=== PATIENT | male | born 1940 | race African-American/Black ===

== ENCOUNTER 2018-03-24 21:47 | Emergency (ER) | payer OTHER ==
[2018-03-24] MEDS ORDERED: Labetalol IV* 5 MG/ML 20 ML VIAL IV PUSH ONE (22:11)
--- OUTSIDE RECORDS SUMMARY | 2018-03-24 22:23 | XMS REPORT ---
:1940 External Reference #:[id number] Author Organization [facility] Address [address] [place] [address] Phone [phone] Care Team Providers Name Role Phone Edgard Stephens M.D. Primary Care Physician Unavailable Payers Type Date Identification Numbers Payment Provider Subscriber Commercial Effective: Policy Number: [employer] Joseph Chavis JR 2016 [id number] Group Number: [id number] [address] Group Name: [employer] [place] [address] PayID: [id number] Problems Date Description Provider Status Onset: 02/15/2017 Mild intermittent asthma Yasir Ledezma M.D. Active Onset: 02/15/2017 Allergic rhinitis Yasir Ledezma M.D. Active Onset: 02/15/2017 Body mass index 25-29 - overweight Yasir Ledezma M.D. 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 Home Environment Mattress is 1 year old Home Environment Pillows are rubber (foam) Home Environment Pillows are not encased in an allergy proof case Home Environment Mattress is encased in an allergy proof case Home Environment Uses a dehumidifier Home Environment There are no draperies in the home Home Environment The home is not yudy Home Environment The floors are wood Home Environment Uses hot water heating Home Environment [place] Home Environment Water Source: Well Smoke-Free Home is smoke-free Smoke-Free Work is smoke-free Pets 1 cat Occupation [employer] ETOH Use Occasionally consumes alcohol Smoking Patient is a former smoker Recreational Drug Use Denies Drug Use Allergies, Adverse Reactions, Alerts Date Description Reaction Status Severity Comments 02/15/2017 NKDA active Medications Medication Date Status Form Strength Qnty SIG Indications Ordering Provider Lisinopril Active Tablets 5mg Unknown Klonopin Active Tablets 0.5mg Unknown Medications Administered in Office Medication Date Status Form Strength Qnty SIG Indications Ordering Provider Injection 03/21/20 Administered Injection Allergy 18 Injection Injection 03/14/20 Administered Injection Allergy 18 Injection Injection 03/06/20 Administered Injection Yasir Ledezma M.D. Injection 03/06/20 Administered Injection Allergy 18 Injection Injection 02/14/20 Administered Injection Allergy 18 Injection Injection 02/01/20 Administered Injection Allergy 18 Injection Injection 01/18/20 Administered Injection Allergy 18 Injection Injection 01/11/20 Administered Injection Allergy 18 Injection Injection 01/04/20 Administered Injection Allergy 18 Injection Injection 12/28/19 Administered Injection Allergy 18 Injection Injection 12/21/19 Administered Injection Allergy 18 Injection Injection 12/14/19 Administered Injection Allergy 18 Injection Injection 12/07/19 Administered Injection Allergy 18 Injection Injection 11/28/19 Administered Injection Allergy 18 Injection Injection 11/15/19 Administered Injection Allergy 18 Injection Injection 11/08/19 Administered Injection Allergy 18 Injection Injection 10/29/19 Administered Injection Allergy 18 Injection Injection 09/27/20 Administered Injection Allergy 17 Injection Injection 09/12/20 Administered Injection Allergy 17 Injection Injection 09/03/20 Administered Injection Allergy 17 Injection Injection 08/27/20 Administered Injection Allergy 17 Injection Injection 08/20/20 Administered Injection Allergy 17 Injection Injection 08/13/20 Administered Injection Allergy 17 Injection Injection 08/01/20 Administered Injection Allergy 17 Injection Injection 07/26/20 Administered Injection Allergy 17 Injection Injection 07/20/20 Administered Injection Allergy 17 Injection Injection 07/13/20 Administered Injection Allergy 17 Injection Injection 07/02/20 Administered Injection Allergy 17 Injection Injection 06/25/20 Administered Injection Allergy 17 Injection Injection 06/06/20 Administered Injection Allergy 17 Injection Injection 05/28/20 Administered Injection Allergy 17 Injection Injection 05/23/20 Administered Injection Allergy 17 Injection Injection 05/14/20 Administered Injection Allergy 17 Injection Injection 05/09/20 Administered Injection Allergy 17 Injection Injection 04/30/20 Administered Injection Allergy 17 Injection Injection 04/16/20 Administered Injection Allergy 17 Injection Injection 04/11/20 Administered Injection Allergy 17 Injection Injection 04/04/20 Administered Injection Allergy 17 Injection Injection 03/26/20 Administered Injection Allergy 17 Injection Vital Signs Date Vital Result Comment 03/22/2018 Height 67 inches 5'7" Weight 180.00 lb Weight in kg's 81.648 Respiratory Rate 20 /min Heart Rate 71 /min O2 % BldC Oximetry 98 % BP Systolic 142 mmHg BP Diastolic 78 mmHg BMI (Body Mass Index) 28.2 kg/m2 02/22/2017 Height 67 inches 5'7" Weight 181.00 lb Weight in kg's 82.102 Respiratory Rate 20 /min Heart Rate 75 /min O2 % BldC Oximetry 98 % BP Systolic 132 mmHg BP Diastolic 82 mmHg BMI (Body Mass Index) 28.3 kg/m2 02/15/2017 Height 67 inches 5'7" Weight 180.00 lb Weight in kg's 81.648 Respiratory Rate 18 /min Heart Rate 80 /min O2 % BldC Oximetry 98 % BP Systolic 134 mmHg BP Diastolic 84 mmHg BMI (Body Mass Index) 28.2 kg/m2 Results Description No Information Procedures Date CPT Code Description Status 03/21/2018 91020 Injection Completed 03/14/2018 98711 Injection Completed 03/06/2018 40662 Injection Completed 03/06/2018 54686 Injection Completed 02/13/2018 96986 Injection Completed 01/31/2018 31274 Injection Completed 01/17/2018 62604 Injection Completed 01/10/2018 82837 Injection Completed 01/03/2018 69050 Extract 1-10 Completed 01/03/2018 86912 Injection Completed 12/27/2017 30456 Injection Completed 12/20/2017 37173 Injection Completed 12/13/2017 04869 Injection Completed 12/06/2017 05266 Injection Completed 11/28/2017 02263 Injection Completed 11/15/2017 41808 Injection Completed 11/08/2017 15124 Injection Completed 10/29/2017 19748 Injection Completed 09/27/2017 24190 Injection Completed 09/12/2017 97091 Extract 1-10 Completed 09/12/2017 42096 Injection Completed 09/03/2017 62256 Injection Completed 08/27/2017 77081 Injection Completed 08/20/2017 60741 Injection Completed 08/13/2017 95527 Injection Completed 08/01/2017 99984 Injection Completed 07/26/2017 73371 Injection Completed 07/20/2017 65260 Injection Completed 07/13/2017 65584 Injection Completed 07/02/2017 27112 Injection Completed 06/25/2017 23314 Extract 1-10 Completed 06/25/2017 45271 Injection Completed 06/06/2017 43941 Injection Completed 05/28/2017 81103 Injection Completed 05/23/2017 53507 Injection Completed 05/14/2017 46862 Injection Completed 05/09/2017 32990 Injection Completed 04/30/2017 68394 Injection Completed 04/16/2017 58395 Injection Completed 04/11/2017 01085 Injection Completed 04/04/2017 13361 Injection Completed 03/26/2017 02848 Injection Completed 02/28/2017 59609 Extract 1-10 Completed 02/22/2017 13436 Skin Test Scratch # Of Units ____ Completed 02/15/2017 49818 Pre PFT Completed Encounters Type Date Location Provider CPT E/M Dx Office Visit 03/22/2018 10:20a [facility] 07419 J30.1 J30.81 J30.89 J30.2 J45.20 Office Visit 02/22/2017 10:20a [facility] 83440 J45.20 J30.89 J30.81 J30.2 J30.1 Z68.28 Office Visit 02/15/2017 9:00a Lina Ledezma M.D. 03282 J30.89 J45.20 Z68.28 Plan of Care 03/22/2018 - KELI Mukherjee-CJ30.1 Allergic rhinitis due to fwvuuvC37.81 Allergic rhinitis due to animal (cat) (dog) hair and vgjyjcJ57.89 Other allergic xjbomuofD66.2 Other seasonal allergic zbhuahvqO55.20 Mild intermittent asthma, uncomplicatedFollow up:1 yearRecommendations:Continue all medications as prescribed.Refrain from wearing perfumes/scented colognes while visitingour office. Continue the IT as tolerated To keep Springtime pollen and mold spores at bay, we recommend the following: -Keep doors and windows closed. - Change clothes and shower before bed to remove pollen from hair and skin. - Limit outdoor time during peak pollen counts. -Replace your home's air filters monthly. -Do not hang your laundry outside to dry.
[2018-03-24 22:31] LABS: ABS Basophils 0 10^3/ul (0-0.2); ABS Eosinophils 0.2 10^3/ul (0-0.6); ABS Lymphocytes 3.7 10^3/ul (1.0-4.8); ABS Monocytes 0.8 10^3/ul (0-0.8); ABS Nucleated RBC 0 10^3/ul; Eosinophil % 2.5 % (0-6); Hematocrit 44 % (42-52); Hemoglobin 14.7 g/dl (14.0-18.0); Lymphocyte % 37.7 % (25-47); Mean Corpuscular HGB Conc 34 g/dl (31-36); Mean Corpuscular Hemoglobin 28 pg (27-31); Mean Corpuscular Volume 83 fL (80-94); Mean Platelet Volume 9.2 um3 (7.4-10.4); Nucleated Red Blood Cells % 0.1; Platelet Count 144 10^3/ul (150-450); Red Blood Count 5.25 10^6/ul (4.00-5.40); Red Cell Distribution Width 15 % (10.5-15); White Blood Count 9.8 10^3/ul (3.5-10.8)
[2018-03-24 22:47] LABS: EGFR Non-African American 73.7 (>60)
[2018-03-24 23:53] VITALS: BP 146/82
--- NOTE | 2018-03-25 19:34 | ED ---
Malinda Sher Emily, scribed for Param Suresh MD on 03/24/18 at 2215 . Hypertension - HPI Summary HPI Summary: This patient is a 77 year old M presenting to [facility] accompanied by family with a chief complaint of elevated blood pressure that began yesterday. The patient rates the pain 0/10 in severity. Symptoms aggravated by nothing. Symptoms alleviated by blood pressure medication. Patient reports dizziness and nausea. Patient denies headache. Pt reports that his blood pressure was over 200 systolic yesterday, so he took his hypertension medication, lisinopril. 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 Patient reports that he has a history of hypertension. - History of Current Complaint Chief Complaint: EDHypertension Stated Complaint: POSS HIGH BLOOD PRESSURE Time Seen by Provider: 03/24/18 22:04 Hx Obtained From: Patient Onset/Duration: Started Days Ago, Still Present Timing: Constant Reported Blood Pressure Prior To Arrival: 205/110 Aggravating Factor(s): Nothing Alleviating Factor(s): Nothing Associated Signs & Symptoms: Dizziness, Other: - Positive nausea. Negative headache - Allergies/Home Medications Allergies/Adverse Reactions: Allergies Allergy/AdvReac Type Severity Reaction Status Date / Time wheat Allergy Intermediate GI Upset Uncoded 05/01/16 19:06 Home Medications: Home Medications Ascorbic Acid TAB* [Vitamin C TAB*] 500 mg PO DAILY 03/24/18 [History Confirmed 03/24/18] Echinacea Purpurea Root [Echinacea] 80 mg PO DAILY 03/24/18 [History Confirmed 03/24/18] Lisinopril 20 mg PO DAILY 03/24/18 [History Confirmed 03/24/18] PMH/Surg Hx/FS Hx/Imm Hx Previously Healthy: No Endocrine/Hematology History: Denies: Hx Diabetes, Hx Thyroid Disease Cardiovascular History: Reports: Hx Hypertension Denies: Hx Pacemaker/ICD Respiratory History: Denies: Hx Asthma, Hx Chronic Obstructive Pulmonary Disease (COPD) GI History: Denies: Hx Ulcer Sensory History: Denies: Hx Hearing Aid Psychiatric History: Denies: Hx Panic Disorder - Cancer History Cancer Type, Location and Year: prostate 2011 - radiation ended 1 yr ago - Surgical History Surgery Procedure, Year, and Place: tonsils Infectious Disease History: No Infectious Disease History: Denies: Hx Hepatitis, Hx Human Immunodeficiency Virus (HIV), Traveled Outside the [place] in Last 30 Days - Family History Known Family History: Positive: Blood Disorder, Other - FATAL PE'S FOR FATHER AND NEPHEW - Social History Occupation: Employed Full-time Lives: With Family Alcohol Use: Weekly Hx Substance Use: No Substance Use Type: Reports: None Hx Tobacco Use: Yes Smoking Status (MU): Former Smoker Length of Time of Smoking/Using Tobacco: quit at 37 years Have You Smoked in the Last Year: No Review of Systems Positive: Other - Positive elevated BP Positive: Nausea Neurological: Other - Positive dizziness Negative: Headache All Other Systems Reviewed And Are Negative: Yes Physical Exam - Summary Physical Exam Summary: VITAL SIGNS: Reviewed. GENERAL: Patient is a well-developed and nourished male who is lying comfortable in the stretcher. Patient is not in any acute respiratory distress. HEAD AND FACE: No signs of trauma. No ecchymosis, hematomas or skull depressions. No sinus tenderness. EYES: PERRLA, EOMI x 2, No injected conjunctiva, no nystagmus. EARS: Hearing grossly intact. Ear canals and tympanic membranes are within normal limits. MOUTH: Oropharynx within normal limits. NECK: Supple, trachea is midline, no adenopathy, no JVD, no carotid bruit, no c- spine tenderness, neck with full ROM. CHEST: Symmetric, no tenderness at palpation LUNGS: Clear to auscultation bilaterally. No wheezing or crackles. CVS: Regular rate and rhythm, S1 and S2 present, no murmurs or gallops appreciated. ABDOMEN: Soft, non-tender. No signs of distention. No rebound no guarding, and no masses palpated. Bowel sounds are normal. EXTREMITIES: FROM in all major joints, no edema, no cyanosis or clubbing. NEURO: Alert and oriented x 3. No acute neurological deficits. Speech is normal and follows commands. SKIN: Dry and warm Triage Information Reviewed: Yes Vital Signs On Initial Exam: Initial Vitals Temp Pulse Resp BP Pulse Ox 97.4 F 97 16 178/86 98 03/24/18 21:51 03/24/18 21:51 03/24/18 21:51 03/24/18 21:51 03/24/18 21:51 Vital Signs Reviewed: Yes Diagnostics - Vital Signs Vital Signs Temp Pulse Resp BP Pulse Ox 03/24/18 22:01 90 97 03/24/18 21:59 88 185/99 97 03/24/18 21:51 97.4 F 97 16 178/86 98 - Laboratory Result Diagrams: 03/24/18 22:23 03/24/18 22:23 Lab Statement: Any lab studies that have been ordered have been reviewed, and results considered in the medical decision making process. Re-Evaluation - Re-Evaluation First Eval Re-Evaluation Time: 23:11 Change: Improved Comment: The patient reports his symptoms have improved Hypertension Course/Dx - Course Course Of Treatment: This patient is a 77 year old M presenting to [facility] accompanied by family with a chief complaint of elevated blood pressure that began yesterday. In the ED course, the patient received Trandate. Bloodwork and UA obtained. The patient will be discharged with instructions to increase his dose of Lisinopril to 40 mg and with follow up from PCP in one to two days. The patient is agreeable with this plan. - Diagnoses Provider Diagnoses: Hypertension Discharge - Sign-Out/Discharge Documenting (check all that apply): Discharge/Admit/Transfer - Discharge home - Discharge Plan Condition: Stable Disposition: HOME Patient Education Materials: Hypertension (ED) Referrals: Edgard Stephens MD [Primary Care Provider] - 1 Day Additional Instructions: Increase your dose of Lisinopril to 40 mg and monitor your blood pressure closely. RETURN TO THE EMERGENCY DEPARTMENT FOR NEW OR WORSENING SYMPTOMS The documentation as recorded by the Malinda coronado Emily accurately reflects the service I personally performed and the decisions made by , Param Suresh MD.
== END 2018-03-24 23:52 | disposition home or self-care (01) ==
LOC: ED 21:47
DX: I10 Essential (primary) hypertension (principal); Z87.891 Personal history of nicotine dependence; Z79.899 Other long term (current) drug therapy
CPT/HCPCS: 36415; 80053; 85025; 96374; 99283